=== PATIENT | female | born 1960 | race Caucasian/White ===

== ENCOUNTER 2022-11-29 08:49 | Day surgery (SDC) | payer MEDICAID ==
[~2022-11-29] VITALS: Ht 154.9 cm; Wt 68.0 kg
[2022-11-29] VITALS (7 sets, daily range): BP systolic 117–151; BP diastolic 58–71; PULSE 68–75; RESP 12–16; O2SAT 91–96
[~2022-11-29 08:49] MED LIST: ASCO500T11 PO; ASPI-543 PO; CHOL500046 PO; DULO60CA41 PO; EVOL140I SC; HYDR12.59 PO; IODIXANOL 320MG/ML 100ML BTL IV ONE; IOHEXOL 350 MG/ML 100ML IJ ONE; LIDOCAINE 2%HCL (LOCAL ANESTH.) INJ 20ML MDV ONE; PANT40T PO; ZOLP10TA PO
[2022-11-29] MEDS ORDERED: LIDOCAINE 2%HCL (LOCAL ANESTH.) INJ 20ML MDV ONE (10:01)
[2022-11-29] MEDS ORDERED: IODIXANOL 320MG/ML 100ML BTL IV ONE (10:01)
[2022-11-29] MEDS ORDERED: ANGIOMAX 250 MG VIAL IV ONE (10:04)
[2022-11-29] MEDS ORDERED: HEPARIN SODIUM (PORCINE) 5000 UNITS/ML 1ML VIAL ONE (10:04)
[2022-11-29] MEDS ORDERED: VERAPAMIL 2.5MG/ML INJ 2ML VIAL IV ONE (10:05)
[2022-11-29] MEDS ORDERED: MIDAZOLAM HCL 2MG/2ML 2ml VIAL (1mg/ml) ONE (10:05)
[2022-11-29] MEDS ORDERED: SODIUM CHL 0.9% 0 ML ONE (10:05)
[2022-11-29] MEDS ORDERED: fentaNYL CITRATE 100 MCG/2 ML VL ONE (10:06)
[2022-11-29] MEDS ORDERED: diphenhdrAMINE HCL 50 MG/1 ML VL ONE (10:26)
[2022-11-29] MEDS ORDERED: ACETAMINOPHEN 500 MG TAB PO ONE (12:15)
== END 2022-11-29 13:05 | disposition home or self-care (01) ==
LOC: CATH 08:49
PROVIDERS: ATTEND Internal Medicine
DX: R94.39 Abnormal result of other cardiovascular function study (principal); R06.02 Shortness of breath; R07.89 Other chest pain; I20.9 Angina pectoris, unspecified; F41.9 Anxiety disorder, unspecified
CPT/HCPCS: 93005; 93458; C1725; C1894; J1200; J1644; J2250; J3010; Q9967; 99152; 99153